=== PATIENT | male | born 1985 | race Caucasian/White ===

== ENCOUNTER 2018-04-18 12:37 | Emergency (ER) | payer OTHER ==
[~2018-04-18] VITALS: Ht 180.3 cm; Wt 78.5 kg
[2018-04-18 12:40] VITALS: BP 150/84
--- NOTE | 2018-04-18 13:16 | PHYS DOC ---
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 Patient complaining of mild headache and not feeling good that does not getting better. Patient denies blurred vision, focal neuro deficit, nausea and vomiting, neck pain. Review of Systems Review of Systems Constitutional: Denies fever or chills [] Eyes: Denies change in visual acuity, redness, or eye pain [] HENT: Denies nasal congestion or sore throat [] Respiratory: Denies cough or shortness of breath [] Cardiovascular: No additional information not addressed in HPI [] GI: Denies abdominal pain, nausea, vomiting, bloody stools or diarrhea [] : Denies dysuria or hematuria [] Musculoskeletal: Denies back pain or joint pain [] Integument: Denies rash or skin lesions [] Neurologic: Reports headache, denies focal weakness or sensory changes [] Endocrine: Denies polyuria or polydipsia [] All other systems were reviewed and found to be within normal limits, except as documented in this note. Physical Exam Physical Exam Constitutional: Well developed, well nourished, no acute distress, non-toxic appearance. [] HENT: Normocephalic, atraumatic, bilateral external ears normal, oropharynx moist, no oral exudates, nose normal. [] Eyes: PERRLA, EOMI, conjunctiva normal, no discharge. [] Neck: Normal range of motion, no tenderness, supple, no stridor. [] Cardiovascular:Heart rate regular rhythm, no murmur [] Lungs & Thorax: Bilateral breath sounds clear to auscultation [] Abdomen: Bowel sounds normal, soft, no tenderness, no masses, no pulsatile masses. [] Skin: Warm, dry, no erythema, no rash. [] Back: No tenderness, no CVA tenderness. [] Extremities: No tenderness, no cyanosis, no clubbing, ROM intact, no edema. [] Neurologic: Alert and oriented X 3, normal motor function, normal sensory function, no focal deficits noted. [] Psychologic: Affect normal, judgement normal, mood normal. [] EKG EKG [] Radiology/Procedures Radiology/Procedures [][address] [address] IMAGING REPORT Signed PATIENT: JAVED NAZARIO ACCOUNT: [id number] : 1985 LOCATION: ER AGE: 33 SEX: M EXAM STATUS: REG ER ORD. PHYSICIAN: AVI HUITRON MD REASON: head injury 1 week ago, headache PROCEDURE: CT HEAD WO CONTRAST CT of the head without contrast, 04/18/2018: HISTORY: Headache, right eye bruising, injury The ventricles are within normal limits in size. There is no shift of the midline structures. There is no evidence of acute intracranial hemorrhage or mass effect. IMPRESSION: No acute intracranial abnormality is detected. Electronically signed by: Zain Mix MD (04/18/2018 1:23 PM) [facility] DICTATED AND SIGNED BY: ZAIN MIX MD DATE: 04/18/18 1323 CC: AVI HUITRON MD; PCP,NO ~ Course & Med Decision Making Course & Med Decision Making Pertinent Imaging studies reviewed. (See chart for details) []discharge: I've spoken with the patient and/or caregivers. I've explained the patient's condition, diagnosis and treatment plan based on information available to me at this time. I've answered the patient's and/or caregivers questions and addressed any concerns. The patient and/or caregivers have a good understanding the patient's diagnosis, condition and treatment plan as can be expected at this point. Vital signs have been stabilized. The patient's condition is stable for discharge from the emergency department. The patient will pursue further outpatient evaluation with her primary care provider or other designated consulting physician as outlined in the discharge instructions. Patient and/or caregivers are agreeable to this plan of care and follow-up instructions have been explained in detail. The patient and/or caregivers have received these instructions in written format and expressed understanding of these discharge instructions. The patient and her caregivers are aware that if any significant change in condition or worsening of symptoms should prompt him to immediately return to this of the closest emergency department. If an emergent department is not readily available I would encourage him to call 911. [place] Disclaimer Dragon Disclaimer This electronic medical record was generated, in whole or in part, using a voice recognition dictation system. Departure Departure: Impression: Primary Impression: Mild concussion Additional Impression: Facial contusion Disposition: HOME, SELF-CARE (at 1354) Condition: STABLE Referrals: PCP,GRACE (PCP) Patient Instructions: Concussion and Brain Injury, Facial or Scalp Contusion Additional Instructions: Drink plenty of liquids Follow-up with your primary care physician in 3-5 days Return to ER if not getting better May take [id number] ibuprofen as needed for pain Problem Qualifiers AVI HUITRON MD Apr 18, 2018 13:15
--- NOTE | 2018-04-18 13:27 | RAD ---
CT of the head without contrast, 04/18/2018: HISTORY: Headache, right eye bruising, injury The ventricles are within normal limits in size. There is no shift of the midline structures. There is no evidence of acute intracranial hemorrhage or mass effect. IMPRESSION: No acute intracranial abnormality is detected. Electronically signed by: Zain Mix MD (04/18/2018 1:23 PM) [facility]
== END 2018-04-18 14:05 | disposition home or self-care (01) ==
LOC: ER 12:37
DX: S06.0X0A Concussion without loss of consciousness, initial encounter (principal); S00.83XA Contusion of other part of head, initial encounter; X58.XXXA Exposure to other specified factors, initial encounter; Y93.89 Activity, other specified; Y99.8 Other external cause status; Y92.89 Other specified places as the place of occurrence of the external cause
CPT/HCPCS: 70450; 99284-25

== ENCOUNTER 2018-12-14 13:51 | Emergency (ER) | payer OTHER ==
[~2018-12-14] VITALS: Ht 180.3 cm; Wt 81.6 kg
[2018-12-14 14:40] VITALS: BP 136/72
--- NOTE | 2018-12-14 14:44 | PHYS DOC ---
Past History Past Medical History: No Pertinent History Past Surgical History: No Surgical History Alcohol Use: None Drug Use: None Adult General Chief Complaint Chief Complaint: FINGER INJURY HPI HPI 33-year-old male presents with left index finger laceration. The patient using a knife as a screwdriver in his finger. He was unsure if it would need sutures so he came to the emergency room. The bleeding was controlled with direct pressure. He has no other injuries or complaints. His tetanus is up-to-date. The knife was clean. Review of Systems Review of Systems Constitutional: Denies fever or chills [] Eyes: Denies change in visual acuity, redness, or eye pain [] HENT: Denies nasal congestion or sore throat [] Respiratory: Denies cough or shortness of breath [] Cardiovascular: No additional information not addressed in HPI [] GI: Denies abdominal pain, nausea, vomiting, bloody stools or diarrhea [] : Denies dysuria or hematuria [] Musculoskeletal: Denies back pain or joint pain [] Integument: L-shaped laceration of the left index finger[] Neurologic: Denies headache, focal weakness or sensory changes [] Endocrine: Denies polyuria or polydipsia [] All other systems were reviewed and found to be within normal limits, except as documented in this note. Allergies Allergies Allergies Coded Allergies Type Severity Reaction Last Updated Verified No Known Drug Allergies 04/18/18 No Physical Exam Physical Exam Constitutional: Well developed, well nourished, no acute distress, non-toxic appearance. [] HENT: Normocephalic, atraumatic, bilateral external ears normal, oropharynx moist, no oral exudates, nose normal. [] Eyes: PERRLA, EOMI, conjunctiva normal, no discharge. [] Neck: Normal range of motion, no tenderness, supple, no stridor. [] Cardiovascular:Heart rate regular rhythm, no murmur [] Lungs & Thorax: Bilateral breath sounds clear to auscultation [] Abdomen: Bowel sounds normal, soft, no tenderness, no masses, no pulsatile masses. [] Skin: 3 cm L-shaped laceration of the left index finger[] Back: No tenderness, no CVA tenderness. [] Extremities: No tenderness, no cyanosis, no clubbing, ROM intact, no edema. [] Neurologic: Alert and oriented X 3, normal motor function, normal sensory function, no focal deficits noted. [] Psychologic: Affect normal, judgement normal, mood normal. [] Current Patient Data Vital Signs Vital Signs Date Time Temp Pulse Resp B/P (MAP) Pulse Ox O2 Delivery O2 Flow Rate FiO2 12/14/18 14:00 98.7 71 16 97 Room Air EKG EKG [] Radiology/Procedures Radiology/Procedures [] Course & Med Decision Making Course & Med Decision Making Pertinent Labs and Imaging studies reviewed. (See chart for details) [] Dragon Disclaimer Dragon Disclaimer This electronic medical record was generated, in whole or in part, using a voice recognition dictation system. Laceration Repair Lac Repair Indication: A 3 cm L-shaped laceration of the left index finger Procedure: Verbal consent was obtained from the patient to repair his laceration with skin glue. Was thoroughly irrigated with normal saline. No foreign bodies were found. The skin borders were well approximated so skin glue was appropriate. No anesthesia was used. I placed 2 layers of Dermabond over the laceration. There was good approximation. A Band-Aid was placed over the area for protection. Total repaired wound length: [3cm]. Other Items: none The patient tolerated the procedure well. Complications: none. Departure Departure: Impression: Primary Impression: Laceration of left index finger Disposition: HOME, SELF-CARE Condition: IMPROVED Referrals: EASTON CHENEY (PCP) Patient Instructions: Fingertip Laceration Problem Qualifiers Primary Impression: Laceration of left index finger Encounter type: initial encounter Damage to nail status: without damage Foreign body presence: without foreign body Qualified Codes: S61.211A - Laceration without foreign body of left index finger without damage to nail, initial encounter SADIQ SUAREZ DO Dec 14, 2018 14:44
== END 2018-12-14 14:44 | disposition home or self-care (01) ==
LOC: ER 13:51
DX: S61.211A Laceration without foreign body of left index finger without damage to nail, initial encounter (principal); W26.0XXA Contact with knife, initial encounter; Y93.89 Activity, other specified; Y92.89 Other specified places as the place of occurrence of the external cause; Y99.8 Other external cause status
CPT/HCPCS: 12001; 12002; 99283

== ENCOUNTER 2019-01-11 15:38 | Emergency (ER) | payer OTHER ==
[~2019-01-11] VITALS: Ht 177.8 cm; Wt 79.4 kg
[2019-01-11 15:43] VITALS: BP 130/78
--- NOTE | 2019-01-11 16:05 | PHYS DOC ---
Past History Past Medical History: No Pertinent History Past Surgical History: No Surgical History Smoking: Non-smoker Alcohol Use: Rarely Drug Use: None Adult General Chief Complaint Chief Complaint: KNEE INJURY HPI HPI 33-year-old male presents with report of right knee pain which initially started 8 days ago after patient had gone for a "long run". 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 Patient reports the knee ended up swelling and was very painful even with walking. Patient reports swelling has since dissipated and went to go run today to get ready for a PT exam on . Patient reports some pain with light running. Patient reports presented for further evaluation and recommendation regarding. He does report history of chronic knee issues in which she feels like his patella is subluxing. Denies orthopedic evaluation. Denies specific trauma. Denies fever or chills. Review of Systems Review of Systems Constitutional: Denies fever or chills [] Musculoskeletal: Reports right knee pain and swelling Integument: Denies rash or skin lesions [] Neurologic: Denies headache, focal weakness or sensory changes [] Complete systems were reviewed and found to be within normal limits, except as documented in this note. Allergies Allergies Allergies Coded Allergies Type Severity Reaction Last Updated Verified No Known Drug Allergies 04/18/18 No Physical Exam Physical Exam Constitutional: Well developed, well nourished, no acute distress, non-toxic appearance. [] HENT: Normocephalic, atraumatic Eyes: Conjunctiva normal, no discharge. [] Lungs & Thorax: No respiratory distress Skin: Warm, dry, no erythema, no rash. [] Extremities: No bony tenderness to right knee, right knee joint is stable, no swelling, no patellar ballottement noted Neurologic: Alert and oriented X 3, no focal deficits noted. [] Psychologic: Affect normal, judgement normal, mood normal. [] Current Patient Data Vital Signs Vital Signs Date Time Temp Pulse Resp B/P (MAP) Pulse Ox O2 Delivery O2 Flow Rate FiO2 01/11/19 15:43 98.2 67 16 97 Room Air EKG EKG [] Radiology/Procedures Radiology/Procedures PROCEDURE: KNEE RIGHT 3V Three-view right knee AP lateral oblique HISTORY: Pain for 10 days The visualized osseous structures appear normal. There is a moderate dense effusion. IMPRESSION: 1. Hemarthrosis. 2. No acute bony abnormality identified. Clinical correlation is suggested. Electronically signed by: Alma Delia Carpenter III, MD (01/11/2019 4:37 PM) [facility] Course & Med Decision Making Course & Med Decision Making Pertinent Imaging studies reviewed. (See chart for details) Patient presents with report of right knee pain after running 8 days ago. Joint appears stable at this time. No swelling or bruising appreciated on physical exam. X-ray obtained without acute fracture or dislocation, however radiology reports a hemarthrosis. Patient advised to rest, ice, compression, and elevate. 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 Advised to obtain knee brace and/or KT tape for stabilization. Patient stable for discharge with outpatient follow-up with PCP/orthopedic surgeon. Orthopedic surgery referral provided. Discussed findings and plan with patient, who acknowledges understanding and agreement. Dragon Disclaimer Dragon Disclaimer This electronic medical record was generated, in whole or in part, using a voice recognition dictation system. Departure Departure: Impression: Primary Impression: Knee pain Disposition: HOME, SELF-CARE Condition: STABLE Referrals: EASTON CHENEY (PCP) ALMA DELIA RIVERS MD Patient Instructions: Knee - Patella Problems, Knee Pain, [id number], Knee Wraps (Elastic Bandage) and RICE Additional Instructions: Use over the counter Ibuprofen or Tylenol for further pain. Use Rainer wrap/knee brace/KT tape to protect joint. Problem Qualifiers Primary Impression: Knee pain Chronicity: unspecified Laterality: right Qualified Codes: M25.561 - Pain in right knee MAUREEN ALICEA DO Jan 11, 2019 16:05
--- NOTE | 2019-01-11 16:40 | RAD ---
Three-view right knee AP lateral oblique HISTORY: Pain for 10 days The visualized osseous structures appear normal. There is a moderate dense effusion. IMPRESSION: 1. Hemarthrosis. 2. No acute bony abnormality identified. Clinical correlation is suggested. Electronically signed by: Aniket Carpenter III, MD (01/11/2019 4:37 PM) [facility]
== END 2019-01-11 16:09 | disposition home or self-care (01) ==
LOC: ER 15:38
DX: M25.561 Pain in right knee (principal); M25.061 Hemarthrosis, right knee; X50.9XXA Other and unspecified overexertion or strenuous movements or postures, initial encounter; Y93.02 Activity, running; Y92.89 Other specified places as the place of occurrence of the external cause; Y99.8 Other external cause status
CPT/HCPCS: 73562; 99284

== ENCOUNTER 2019-02-21 09:15 | Emergency (ER) | payer OTHER ==
[~2019-02-21] VITALS: Ht 177.8 cm; Wt 79.4 kg
[2019-02-21] MEDS ORDERED: D-ME118S2 PO (09:50)
[2019-02-21] MEDS ORDERED: AZIT250T6 PO (09:50)
[2019-02-21] MEDS ORDERED: MELO7.5T29 PO (09:50)
--- NOTE | 2019-02-21 09:51 | PHYS DOC ---
Past History Past Medical History: No Pertinent History Past Surgical History: No Surgical History Smoking: Non-smoker Alcohol Use: Rarely Drug Use: None Adult General Chief Complaint Chief Complaint: COUGH HPI HPI Patient is a 34-year-old male presents with sinus pain, cough, and generalized body aches. This is been present for the past 3 days. Minimal relief with DayQuil. Patient has sick contacts, his daughter, who had similar symptoms. She is doing much better now. No vomiting. Nonproductive cough.[] Review of Systems Review of Systems Constitutional: Denies fever or chills [] Eyes: Denies change in visual acuity, redness, or eye pain [] HENT: Denies sore throat [] Respiratory: Denies shortness of breath, see history of present illness [] Cardiovascular: No chest pain or palpitations[] GI: Denies abdominal pain, nausea, vomiting, bloody stools or diarrhea [] : Denies dysuria or hematuria [] Musculoskeletal: Denies back pain or joint pain [] Integument: Denies rash or skin lesions [] Neurologic: Denies headache, focal weakness or sensory changes [] Endocrine: Denies polyuria or polydipsia [] All other systems were reviewed and found to be within normal limits, except as documented in this note. Allergies Allergies Allergies Coded Allergies Type Severity Reaction Last Updated Verified No Known Drug Allergies 04/18/18 No Physical Exam Physical Exam Constitutional: Well developed, well nourished, no acute distress, non-toxic appearance. [] HENT: Normocephalic, atraumatic, bilateral external ears normal, oropharynx moist, no oral exudates, nose normal with clear rhinorrhea, no sinus tenderness to percussion. [] Eyes: PERRLA, EOMI, conjunctiva normal, no discharge. [] Neck: Normal range of motion, no tenderness, supple, no stridor. [] Cardiovascular:Heart rate regular rhythm, no murmur [] Lungs & Thorax: Bilateral breath sounds clear to auscultation [] Abdomen: Bowel sounds normal, soft, no tenderness, no masses, no pulsatile masses. [] Skin: Warm, dry, no erythema, no rash. [] Back: No tenderness, no CVA tenderness. [] Extremities: No tenderness, no cyanosis, no clubbing, ROM intact, no edema. [] Neurologic: Alert and oriented X 3, normal motor function, normal sensory function, no focal deficits noted. [] Psychologic: Affect normal, judgement normal, mood normal. [] Current Patient Data Vital Signs Vital Signs Date Time Temp Pulse Resp B/P (MAP) Pulse Ox O2 Delivery O2 Flow Rate FiO2 02/21/19 09:15 98.3 75 20 98 Room Air EKG EKG [] Radiology/Procedures Radiology/Procedures [] Course & Med Decision Making Course & Med Decision Making Pertinent Labs and Imaging studies reviewed. (See chart for details) Medical decision making and ED course: Patient appears to have an upper respiratory infection, will prescribe "just in case" antibiotics to be started in 2 days if no relief with symptomatic therapy. Discussed plan with patient who voiced understanding. All questions were answered. He was discharged in improved condition. There is no evidence of pneumonia, pneumothorax, hypoxia, nor other significant life-threatening condition.[] Dragon Disclaimer Dragon Disclaimer This electronic medical record was generated, in whole or in part, using a voice recognition dictation system. Departure Departure: Impression: Primary Impression: Upper respiratory infection Disposition: 01 HOME, SELF-CARE Condition: IMPROVED Referrals: EASTON CHENEY (PCP) Follow-up in 2 days Patient Instructions: Upper Respiratory Infection, Adult Additional Instructions: Drink plenty of fluids. Follow-up with your regular doctor in 2 days. Wait 2 days before filling/taking the azithromycin. If you're doing better with the other medication, do not take it at all. If doing no better, take it as directed. Return to the ER if worsening difficulty breathing, blood in your sputum, or any other concerns Scripts Azithromycin (AZITHROMYCIN TABLET) 250 Mg Tablet 1 PKG PO UD for infection, #6 TAB Prov: OLEG PELLETIER DO 02/21/19 D-Methorphan Hb/Prometh Hcl (PROMETHAZINE-DM SYRUP) 118 Ml Syrup 5 ML PO PRN Q4HRS for CONGESTION, #120 ML Prov: OLEG PELLETIER DO 02/21/19 Meloxicam (MELOXICAM) 7.5 Mg Tablet 7.5 MG PO DAILY for PAIN, #20 TAB Prov: OLEG PELLETIER DO 02/21/19 Problem Qualifiers Primary Impression: Upper respiratory infection URI type: unspecified URI Qualified Codes: J06.9 - Acute upper respiratory infection, unspecified OLEG PELLETIER DO Feb 21, 2019 09:51
[2019-02-21 09:55] VITALS: BP 118/75
== END 2019-02-21 09:56 | disposition home or self-care (01) ==
LOC: ER 09:15
DX: J06.9 Acute upper respiratory infection, unspecified (principal)
CPT/HCPCS: 99283

== ENCOUNTER 2019-03-25 16:51 | Emergency (ER) | payer OTHER ==
[~2019-03-25 16:51] MED LIST: AZIT250T6 PO; D-ME118S2 PO; MELO7.5T29 PO
--- NOTE | 2019-03-25 17:43 | PHYS DOC ---
Past History Past Medical History: No Pertinent History Past Surgical History: No Surgical History Smoking: Non-smoker Alcohol Use: Rarely Drug Use: None Adult General Chief Complaint Chief Complaint: LOWEREXTREMITY INJURY [facility] HPI 34-year-old male presents with left lower extremity swelling and pain. The patie nt had surgery on his right knee recently and has been using his left leg more. He has also been sitting around a lot for recovery. He has started to have a cramping sensation in the posterior calf for seemingly no reason. He thought it might be slightly enlarged also. He was told by a surgeon if he had any leg issues to come in for evaluation. He is concern for DVT. No history of DVT patient denies fever, chills, shortness of breath, dizziness. 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 Review of Systems Review of Systems Constitutional: Denies fever or chills [] Eyes: Denies change in visual acuity, redness, or eye pain [] HENT: Denies nasal congestion or sore throat [] Respiratory: Denies cough or shortness of breath [] Cardiovascular: No additional information not addressed in HPI [] GI: Denies abdominal pain, nausea, vomiting, bloody stools or diarrhea [] : Denies dysuria or hematuria [] Musculoskeletal: Left lower extremity pain[] Integument: Denies rash or skin lesions [] Neurologic: Denies headache, focal weakness or sensory changes [] Endocrine: Denies polyuria or polydipsia [] All other systems were reviewed and found to be within normal limits, except as documented in this note. Allergies Allergies Allergies Coded Allergies Type Severity Reaction Last Updated Verified No Known Drug Allergies 03/25/19 No Physical Exam Physical Exam Constitutional: Well developed, well nourished, no acute distress, non-toxic appearance. [] HENT: Normocephalic, atraumatic, bilateral external ears normal, oropharynx moist, no oral exudates, nose normal. [] Eyes: PERRLA, EOMI, conjunctiva normal, no discharge. [] Neck: Normal range of motion, no tenderness, supple, no stridor. [] Cardiovascular:Heart rate regular rhythm, no murmur [] Lungs & Thorax: Bilateral breath sounds clear to auscultation [] Abdomen: Bowel sounds normal, soft, no tenderness, no masses, no pulsatile masses. [] Skin: Warm, dry, no erythema, no rash. [] Back: No tenderness, no CVA tenderness. [] Extremities: Left lower extremity slightly larger than right, no tightness or pain with palpation.[] Neurologic: Alert and oriented X 3, normal motor function, normal sensory function, no focal deficits noted. [] Psychologic: Affect normal, judgement normal, mood normal. [] Current Patient Data Vital Signs Vital Signs Date Time Temp Pulse Resp B/P (MAP) Pulse Ox O2 Delivery O2 Flow Rate FiO2 03/25/19 16:58 98.0 70 18 97 Room Air EKG EKG [] Radiology/Procedures Radiology/Procedures [] Impressions: Left lower extremity venous duplex study 03/25/2019 Clinical History: Left leg swelling. Technique: Using a combination of real time ultrasound imaging and color-flow and pulse Doppler imaging techniques along with graded compression and augmentation, duplex evaluation of the deep venous system of the left lower extremity was performed. Multiple images were obtained. Findings: There is no sonographic evidence of deep venous thrombosis involving the visualized deep venous structures of the left lower extremity. Impression: Negative study. Electronically signed by: Abel Pérez MD (03/25/2019 5:42 PM) [facility] DICTATED AND SIGNED BY: ABEL PÉREZ MD DATE: 03/25/191741 CC: RUTHY WELLS; SADIQ SUAREZ DO ~ Course & Med Decision Making Course & Med Decision Making Pertinent Labs and Imaging studies reviewed. (See chart for details) The patient's ultrasound was unremarkable. He does not have a DVT. His labs are unremarkable. He is stable for discharge at this time. [] Dragon Disclaimer Dragon Disclaimer This electronic medical record was generated, in whole or in part, using a voice recognition dictation system. Departure Departure: Impression: Primary Impression: Pain in left lower leg Disposition: HOME, SELF-CARE Condition: STABLE Referrals: RUTHY WELLS (PCP) SADIQ SUAREZ DO Mar 25, 2019 17:42
[2019-03-25 17:52] LABS: BASO % 1 % (0-3); EOS # 0.2 x10^3/uL (0.0-0.7); EOS % 3 % (0-3); HEMATOCRIT 43.1 % (39.0-53.0); HEMOGLOBIN 14.5 g/dL (13.0-17.5); LYMPH # 1.6 x10^3/uL (1.0-4.8); LYMPH % 28 % (24-48); MEAN CORPUSCULAR HEMOGLOBIN 30 pg (25-35); MEAN CORPUSCULAR HGB CONC 34 g/dL (31-37); MEAN CORPUSCULAR VOLUME 89 fL (79-100); MONO # 0.6 x10^3/uL (0.0-1.1); MONO % 11 % (0-9); NEUT # 3.3 x10^3uL (1.8-7.7); NEUT % 58 % (31-73); PLATELET COUNT 164 x10^3/uL (140-400); RED BLOOD COUNT 4.87 x10^6/uL (4.30-5.70); RED CELL DISTRIBUTION WIDTH 12.9 % (11.5-14.5); WHITE BLOOD COUNT 5.7 x10^3/uL (4.0-11.0)
[2019-03-25 18:05] VITALS: BP 134/86
[2019-03-25 18:05] LABS: ALBUMIN 4.4 g/dL (3.4-5.0); ALBUMIN/GLOBULIN RATIO 1.3 (1.0-1.7); CALCIUM 9.4 mg/dL (8.5-10.1); CREATININE 1.2 mg/dL (0.7-1.3); GFR 69.3; TOTAL BILIRUBIN 0.3 mg/dL (0.2-1.0); TOTAL PROTEIN 7.8 g/dL (6.4-8.2)
== END 2019-03-25 18:05 | disposition home or self-care (01) ==
LOC: ER 16:51
DX: M79.605 Pain in left leg (principal); R22.42 Localized swelling, mass and lump, left lower limb
CPT/HCPCS: 36415; 80053; 85025; 93971; 99285